=== PATIENT | male | born 1950 | race Asian ===

== ENCOUNTER 2025-03-03 22:06 | Emergency (ER) | payer OTHER ==
[~2025-03-03] VITALS: Ht 175.3 cm; Wt 74.8 kg
[2025-03-03 22:11] VITALS: O2SAT 98
[2025-03-03 22:32] VITALS: TEMP 36.6
[2025-03-03 23:47] LABS: BASOPHILS % 0.4 % (0.0-2.0); EOSINOPHILS % 0.3 % (0.0-5.0); HEMATOCRIT. 40.0 % (42.0-52.0); HEMOGLOBIN. 13.1 g/dL (14.0-18.0); LYMPHOCYTES % 16.4 % (20.0-50.0); MEAN PLATELET VOLUME 6.8 fl (7.4-10.4); MONOCYTES % 4.9 % (2.0-8.0); NEUTROPHILS % 78.0 % (40.0-76.0); PLATELET 282 x1000/uL (130-400); RED BLOOD CELL COUNT 4.50 mill/uL (4.7-6.1); RED CELL DISTRIBUTION WIDTH 14.4 % (11.6-14.6)
[2025-03-03] MEDS: SODIUM CHLORIDE 0.9% 1,000 ML IV ONE (23:57)
[2025-03-03] MEDS: ONDANSETRON HCL 4MG/2ML INJ IV ONE (23:57)
[2025-03-04] LABS: CREATININE 0.9 mg/dL (0.6-1.3)
[2025-03-04 00:01] LABS: UREA NITROGEN BLOOD 16 mg/dL (9-23)
[2025-03-04 00:02] LABS: ASPARTATE AMINOTRANSFERASE 24 IU/L (<34)
[2025-03-04 00:03] LABS: BILIRUBIN DIRECT < 0.1 mg/dL (<=3.0); BILIRUBIN TOTAL 0.3 mg/dL (0.1-1.0); PROTEIN TOTAL 7.4 g/dL (6.0-8.3)
[2025-03-04 04:08] VITALS: BP 129/76; PULSE 95; RESP 16; O2SAT 97
== END 2025-03-04 04:21 | disposition home or self-care (01) ==
LOC: ER 22:06
DX: K29.20 Alcoholic gastritis without bleeding (principal); E78.00 Pure hypercholesterolemia, unspecified; I10 Essential (primary) hypertension; F17.200 Nicotine dependence, unspecified, uncomplicated
CPT/HCPCS: 99285; 96374; 96361; 80076; 80048; 83690; 85025; 36415; J2405; J7030